=== PATIENT | female | born 1965 | race Caucasian/White ===

== ENCOUNTER 2016-08-12 09:36 | Outpatient (CLI) | payer OTHER | END 2016-08-12 09:37 | disposition home or self-care (01) | DX: Z12.31 Encounter for screening mammogram for malignant neoplasm of breast (principal) ==

== ENCOUNTER 2016-08-12 09:39 | Outpatient (CLI) | payer OTHER | END 2016-08-12 09:40 | disposition home or self-care (01) | DX: Z13.820 Encounter for screening for osteoporosis (principal) ==

== ENCOUNTER 2022-01-11 11:14 | Emergency (ER) | payer OTHER ==
[2022-01-11 11:33] VITALS: BP 138/90
[2022-01-11] MEDS: oxyCODONE 5 MG TABLET PO STA (12:00)
--- NOTE | 2022-01-11 12:08 | ED Physician Documentation ---
History of Present Illness - Stated complaint Stated Complaint: R HIP PAIN - Chief complaint Chief Complaint: Trauma Ext - Additonal information Additional information: 56-year-old female presents emergency department for evaluation of acute right hip pain. She reports that she was standing at the door trying to prevent her dog from exiting and she was straddling him. As he lunged forward she reached to grab him and felt a sudden pop in her posterior hip. She reports that she had a severe pain that week and her leg and she had difficulty walking. She summoned EMS and comes here. She denies that she actually fell. She was ambulatory on scene. No history of previous hip injury. She is not anticoagulated. Review of Systems Constitutional: reports: Reviewed and negative Nose: reports: Reviewed and negative Throat: reports: Reviewed and negative Cardiac: reports: Reviewed and negative Respiratory: reports: Reviewed and negative GI: reports: Reviewed and negative : reports: Reviewed and negative Skin: reports: Reviewed and negative Musculoskeletal: reports: Joint pain Neurologic: reports: Reviewed and negative PD PAST MEDICAL HISTORY - Present Medications Home Medications: Ambulatory Orders Medication Instructions Recorded Confirmed oxyCODONE [Roxicodone] 5 mg PO BID #10 tablet 01/11/22 - Allergies Allergies/Adverse Reactions: Allergies Allergy/AdvReac Type Severity Reaction Status Date / Time Penicillins Allergy Unknown Verified 01/11/22 11:30 PD ED PE EXPANDED - General General: Alert, No acute distress, Other (Obese) - Cardiac Cardiac: Regular Rate - Respiratory Respiratory: Clear to ausultation ivan. No: Distress, Labored - Back Back: No: Vertebral tenderness, Soft tissue tenderness (No lower lumbar vertebral process tenderness or paraspinous tenderness elicited. Normal forward flexion of the lumbar spine.), CVA TTP right - Extremities Extremities: Right hip (Tenderness elicited with palpation of the deep right posterior gluteal muscle. She has no malrotation of the right leg. No shortening. Normal internal and external rotation. She is able to easily elevate the leg off the bed. Able to stand at the bedside and ambulate though mildly antalgic) Results - Vitals Vitals: Vital Signs - 24 hr 01/11/22 11:31 Temperature 37.2 C Heart Rate 77 Respiratory 17 Rate Blood Pressure 138/90 H O2 Saturation 99 Oxygen O2 Source Room air - Rads (name of study) right hip/pelvis Radiology: Final report received (Moderate bilateral joint space narrowing without fracture or subluxation) PD MEDICAL DECISION MAKING - ED course Complexity details: reviewed results, re-evaluated patient, considered differential, d/w patient ED course: 56-year-old female presents emergency department for evaluation of right posterior hip pain. She is trying to prevent her dog from running through the door when she was holding him between her legs and she bent forward. She felt a pop in the hip but did not fall. She then began having pain with ambulation. No history of previous injury. She is not anticoagulated. On exam pain is reproducible with palpation of the gluteal muscle body. She is however able to fully flex and extend the hip and knee. She also has preserved normal internal and external rotation. She is able to bear full weight on the leg and ambulate with a mild limp. Gait is improved using a walker. X-ray of the hip was without acute findings. I suspect she most likely has a hip strain or perhaps even a hamstring tear. Exam is not consistent with a fracture. Patient is advised ibuprofen limited amount of oxycodone. Emergent return precautions were discussed for worsening symptoms. I am prescribing a short course of short-acting opioid pain medication for this patient. I have reviewed the patients [employer] and no concerning findings were noted. I have discussed that the opioids are for short term therapy only, and will not be refilled from the ED. Departure - Departure Disposition: 01 Home, Self Care Clinical Impression: Strain of right hip Qualifiers: Encounter type: initial encounter Qualified Code(s): S76.011A - Strain of muscle, fascia and tendon of right hip, initial encounter Condition: Stable Record reviewed to determine appropriate education?: Yes Prescriptions: oxyCODONE [Roxicodone] 5 mg PO BID #10 tablet Comments: Jazmyne mccoy are seen today in the emergency department after you were trying to prevent your dog from going through your door. He felt a pop behind your right hip. The x-ray does not show anything to suggest a fracture and you are able to walk and bear weight on this rather well. I suspect you have a hip sprain or strain. In general I would like you to take 600 mg of ibuprofen with food 2-3 times a day. For more severe pain you can use a limited amount of oxycodone. You cannot drive if taking this. While the hip sprain is healing you may benefit from using a walker to aid in ambulation and make it safer for you to walk. Most sprains/strain injuries will resolve after about 1 to 2 weeks. If not markedly better please follow-up with your primary care provider. At that point you may benefit from referral to physical therapy or consideration of other imaging such as an MRI. I am prescribing a short course of narcotic pain medication for you. These are potentially dangerous and addictive medications that should be used carefully. These medications may constipate you. Take an biif-nko-afvjndf stool softener (docusate) twice daily with plenty of water while taking these medications. If you go 24 hours without a bowel movement, take ioxn-sat-qnvhvew miralax, per package instructions. Do not drink or drive while taking these medications. If you received narcotic or sedating medications while in the emergency department, do not drive for 24 hours. Store this medication in a safe, secure place and out of reach of children. It is a violation of federal law to give or sell this medication to another person or to use in a manner other than prescribed. The ED will not refill narcotic prescriptions, including prescriptions lost or stolen. To dispose of unwanted medications: 1. [facility] at [address] in [place] has a medication drop box. They accept prescription medications (in pill form) Thursday through Thursday 9:00 a.m. to 5:00 p.m. 2. The [facility] accepts prescription medications (in pill form only) for disposal year round. Call for more information. 3. Contact the [facility] for the next [facility] sponsored prescription drug collection event. , [phone], or [phone]; Note that many narcotic pain relievers also contain Tylenol/acetaminophen. Please ensure that your total dose of acetaminophen from all sources does not exceed 3 g (3000 mg) per day.
--- NOTE | 2022-01-11 13:04 | XRAY Report ---
PROCEDURE: Hip w/Pelvis 2-3V RT INDICATIONS: pop in hip; pain TECHNIQUE: AP pelvis with lateral view(s) of the right hip(s). COMPARISON: None. FINDINGS: Bones: No fractures or dislocations. Pelvic ring appears intact. No suspicious bony lesions. Mode rate bilateral joint space narrowing. Soft tissues: The visualized bowel gas pattern is normal. No suspicious soft tissue calcifications. IMPRESSION: Moderate bilateral joint space narrowing without fracture or fixation Reviewed by: Jagdish Campbell MD on 01/11/2022 12:02 PM [facility] Approved by: Jagdish Campbell MD on 01/11/2022 12:02 PM AK[facility] Station ID: [id number]
== END 2022-01-11 13:36 | disposition home or self-care (01) ==
LOC: ED 11:14
DX: S76.011A Strain of muscle, fascia and tendon of right hip, initial encounter (principal); X50.1XXA Overexertion from prolonged static or awkward postures, initial encounter
CPT/HCPCS: 73502; 99282; 99283; A9270